=== PATIENT | female | born 1950 | race Caucasian/White ===

== ENCOUNTER → 2016-07-12 | Outpatient (CLI) | payer OTHER | LOC: FIMAGING 09:30 | PROVIDERS: ATTEND Internal Medicine Gastroenterology | DX: R74.0 Nonspecific elevation of levels of transaminase and lactic acid dehydrogenase [LDH] (principal); R74.8 Abnormal levels of other serum enzymes; K76.9 Liver disease, unspecified ==

== ENCOUNTER → 2016-11-24 | Outpatient (CLI) | payer OTHER | LOC: FIMAGING 10:03 → EDSTATUS 10:20 | PROVIDERS: ATTEND Internal Medicine | DX: Z12.31 Encounter for screening mammogram for malignant neoplasm of breast (principal) | CPT/HCPCS: G0202 ==

== ENCOUNTER 2017-06-03 17:14 | Emergency (ER) | payer OTHER ==
[2017-06-03 17:36] VITALS: BP 124/73; PULSE 106; RESP 16; TEMP 98.2; O2SAT 95
[2017-06-03] MEDS ORDERED: PROPARACAINE 0.5% 15 ML OPHT DROP OP ONE (17:39)
[2017-06-03] MEDS ORDERED: FLUORESCEIN SODIUM 1 MG STRIP OP ONE ×2 (17:40→17:49)
[2017-06-03] MEDS ORDERED: PROPARACAINE 0.5% 15 ML OPHT DROP ONE (17:40)
--- NOTE | 2017-06-03 17:40 | EDPHY ---
H & P Stated Complaint: R eye injury Time Seen by Provider: 06/03/17 17:39 HPI/ROS: CHIEF COMPLAINT: Right eye pain HISTORY OF PRESENT ILLNESS: This is a 66-year-old female who was working in the [employer] today. A branch puncture in the right eye. This occurred for 5 hr ago. She has had persistent right eye pain since that time. She has a foreign body sensation. She reports chronic dry eyes and states that she rubs her eyes frequently. She is not aware of any change in vision. She wears glasses on occasion, no contact lens use. She has had Lasix surgery in the remote past. No injury to the left eye or the face. REVIEW OF SYSTEMS: A ten point review of systems was performed and is negative with the exception of the items mentioned in the HPI. Past medical history: 1 TBI 2. Hyperlipidemia 3. Depression 4. 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 She is . She does not use tobacco products. She drinks alcohol socially. General Appearance: Alert. Vital signs reviewed. Blood pressure 124/60 3, heart rate 106. Focused exam was performed. Eyes: Visual Acuity: noted from Nurse's notes. Pupils:equal round and reactive to light EOMI Lids: no edema or swelling, lids everted and no evidence of foreign body seen. Skin: no proptosis, no periorbital erythema or swelling, no vesicles Conjunctivae: Mildly injected OD, watery discharge OD Cornea: exam with fluorescein shows corneal abrasion at 1 o'clock Anterior chamber:normal, no hyphema or hypopyon ENT, Mouth: Mucous membranes are moist, no oropharyngeal erythema or edema. Respiratory: Lungs are clear to auscultation; no wheezes, rales, or rhonchi. Cardiovascular: Regular rate and rhythm; no murmur, rub, or gallop. Neurological: Alert and oriented. Moving all four extremities easily and equally. Psychiatric: Normal affect. - Personal History Current Tetanus/Diphtheria Vaccine: Yes Current Tetanus Diphtheria and Acellular Pertussis (TDAP): Yes Tetanus Vaccine Date: 12/10/2010 - Medical/Surgical History Hx Asthma: No Hx Chronic Respiratory Disease: No Hx Diabetes: No Hx Cardiac Disease: No Hx Renal Disease: No Hx Cirrhosis: No Hx Alcoholism: No Hx HIV/AIDS: No Hx Splenectomy or Spleen Trauma: No Other PMH: past hx L lumbar pain. head injury, hyperlipidemia,GERD, - Social History Smoking Status: Former smoker Constitutional: Initial Vital Signs Temperature (C) 36.8 C 06/03/17 17:34 Heart Rate 106 H 06/03/17 17:34 Respiratory Rate 16 06/03/17 17:34 Blood Pressure 124/73 H 06/03/17 17:34 O2 Sat (%) 95 06/03/17 17:34 O2 Delivery Mode Room Air Allergies/Adverse Reactions: No Known Allergies Allergy (Verified 06/03/17 17:31) Home Medications: Medication Instructions Recorded TEMAZEPAM 15 mg PO HS PRN 03/15/12 Pravastatin Sodium 01/04/16 Gabapentin 06/03/17 Lasix 06/03/17 Ofloxacin 0.3% [Ocuflox 0.3% (RX)] 1 drops RTEYE QID #1 opht.btl 06/03/17 Topamax 06/03/17 Venlafaxine HCl 06/03/17 oxyCODONE/APAP 5/325 [Percocet 1 - 2 tab PO Q4H PRN #15 tab 06/03/17 5/325 (RX)] Medical Decision Making ED Course/Re-evaluation: Eye examination reveals corneal abrasion OB. She is given a prescription for Ocuflox and Percocet. 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 She is also given referral to an loom winder tender. We reviewed the danger signs that should prompt her to be re-evaluated immediately. I do not see a foreign body with lid eversion. No evidence of ruptured globe or scleral injury. Anterior chamber appears normal--no hyphema or hypopyon. I do not suspect acute angle closure glaucoma in this setting of blunt trauma to the eye. Departure - Departure Disposition: Home, Routine, Self-Care Clinical Impression: Corneal abrasion Qualifiers: Encounter type: initial encounter Laterality: right Qualified Code(s): S05.01XA - Injury of conjunctiva and corneal abrasion without foreign body, right eye, initial encounter Condition: Good Instructions: Corneal Abrasion (ED) Additional Instructions: Use the eye drops, Ocuflox, every two hours while awake tonight. After that you can use it every four to six hours. Follow up with your eye doctor or with Dr. Patton on Monday. Call early Monday morning for an appointment. Make sure the office knows that you were seen in the emergency department and diagnosed with a corneal abrasion. Referrals: Josseline Narvaez MD [Primary Care Provider] - As per Instructions Romel Patton MD [Medical Doctor] - As per Instructions Prescriptions: Ofloxacin 0.3% [Ocuflox 0.3% (RX)] 1 drops RTEYE QID #1 opht.btl oxyCODONE/APAP 5/325 [Percocet 5/325 (RX)] 1 - 2 tab PO Q4H PRN #15 tab PRN Reason: Pain, Severe
== END 2017-06-03 18:25 | disposition home or self-care (01) ==
DX: S05.01XA Injury of conjunctiva and corneal abrasion without foreign body, right eye, initial encounter (principal); Z87.891 Personal history of nicotine dependence; X58.XXXA Exposure to other specified factors, initial encounter; Y92.89 Other specified places as the place of occurrence of the external cause; Y99.0 Civilian activity done for income or pay; Y93.89 Activity, other specified

== ENCOUNTER 2018-02-07 19:10 | Emergency (ER) | payer OTHER ==
--- NOTE | 2018-02-07 20:31 | EDPHY ---
H & P Stated Complaint: right knee pain for 2days that radiates to the right leg. Pt fell 5days ago Time Seen by Provider: 02/07/18 20:30 HPI/ROS: HPI: This is a 67-year-old female who presents with Chief Complaint: right knee pain for 2days that radiates to the right leg. Pt fell 5days ago Location: Right leg Quality: Pain Duration: 5 days Signs and Symptoms: No bleeding, + radiation, no numbness, no weakness, no tingling, no incontinence, + decreased range of motion, no swelling, + pain, no fever Timing: Acute, worse Severity: Moderate to severe Context: Patient has a history of left lumbar radiculopathy pain presents with tripping and the yard accidentally. Denies LOC/head injury/neck pain/dizziness/ nausea/vomiting/amnesia. Patient believes that she may have injured her knee. Over the course of the last 2 days she has developed progressive right lower leg decreased range of motion and pain. Denies any change in bowel or bladder habits. She reports that she is unable to ambulate secondary to the pain. Patient also reports that she has some arthritis in her right hip. Modifying Factors: None Comment: ROS: A comprehensive 10 system review of systems is otherwise negative aside from elements mentioned in the history of present illness. MEDICAL/SURGICAL/SOCIAL HISTORY: Medical history: L lumbar pain, head injury, hyperlipidemia,GERD, depression, Surgical history: arnol, bso, partial thyroidectomy Social history: Former smoker. Denies drug use. CONSTITUTIONAL: Moderate distress, elderly white female, awake and alert HEENT: Atraumatic and normocephalic. NECK: supple, no midline tenderness, flexion 45 degrees, extension 45 degrees, right and left lateral flexion 45 degrees. No meningismus. Cardiovascular: Normal S1/S2, regular rate, regular rhythm, without murmur rub or gallop. PULMONARY/CHEST: Symmetrical and nontender. no crepitus. Clear to auscultation bilaterally. Good air movement. No accessory muscle usage. ABDOMEN: Soft, nondistended, nontender, no ecchymosis. BACK: No midline tenderness, moderate reproducible lumbar paraspinous bear lateral tenderness; decreased flexion, extension and rotation secondary to pain ; no paraspinous spasm, deep tendon reflexes 2/2, mild pain with straight leg raise, No foot drop. Achilles reflexes are equal bilaterally. EXTREMITIES: 2/2 pulses, strength 5/5, right HIP: Flexion to 90 , extension to 100 , hyper extension to 15, abduction to 45. Moderate Pain with internal rotation and external rotation. Mild tenderness over greater trochanter. Right KNEE: no effusion, no medial and lateral joint line tenderness, full extension to 180, flexion to 90 . Mild pain with varus and valgus exam. Mild pain with anterior drawer or posterior drawer test. Extensor mechanism intact. DIP/PIP/MCP flexion/extension intact with good light touch sensation. no deformities, no clubbing, no cyanosis or edema. NEUROLOGICAL: no focal neuro deficits. GCS 15. Light touch sensation intact. SKIN: Warm and dry, no erythema. no rash. Good capillary refill. Source: Patient Exam Limitations: No limitations - Personal History Current Tetanus/Diphtheria Vaccine: Yes Current Tetanus Diphtheria and Acellular Pertussis (TDAP): Yes Tetanus Vaccine Date: 12/10/2010 - Medical/Surgical History Hx Asthma: No Hx Chronic Respiratory Disease: No Hx Diabetes: No Hx Cardiac Disease: No Hx Renal Disease: No Hx Cirrhosis: No Hx Alcoholism: No Hx HIV/AIDS: No Hx Splenectomy or Spleen Trauma: No Other PMH: past hx L lumbar pain. head injury, hyperlipidemia,GERD, depression , arnol, bso, partial thyroidectomy - Social History Smoking Status: Former smoker Constitutional: Initial Vital Signs Temperature (C) 36.7 C 02/07/18 19:14 Heart Rate 97 02/07/18 19:14 Respiratory Rate 16 02/07/18 19:14 Blood Pressure 133/73 H 02/07/18 19:14 O2 Sat (%) 96 02/07/18 19:14 O2 Delivery Mode Room Air Allergies/Adverse Reactions: No Known Allergies Allergy (Verified 02/07/18 19:17) Home Medications: Medication Instructions Recorded Topamax 06/03/17 Venlafaxine HCl 06/03/17 Aspirin 81mg (*) 02/07/18 Cyclobenzaprine [Flexeril 10 MG 10 mg PO TID PRN #15 tab 02/07/18 (*)] Ritalin 10mg (*) 02/07/18 oxyCODONE/APAP 5/325 [Percocet 1 - 2 tab PO Q4H PRN #10 tab 02/07/18 5/325 (*)] Medical Decision Making - Diagnostics Imaging Results: Imaging Impressions Hip X-Ray 02/07/18 20:37 Impression: 1. Mild to moderate osteoarthritis right hip. 2. No definite right hip fracture or dislocation. 3. Consider additional CT or MRI imaging, if clinically indicated. Knee X-Ray 02/07/18 20:37 Impression: 1. Moderate tricompartmental osteoarthritis, worse in the patellofemoral joint. 2. No definite fracture. 3. Consider follow-up MRI imaging, if clinically indicated. Lumbar Spine X-Ray 02/07/18 20:37 Impression: 1. Dextroscoliosis. 2. Multilevel moderate degenerative disk disease. 3. No compression fractures. 4. Consider additional MRI imaging, if clinically indicated. Procedures: Procedure: Splint placement. A right knee immobilizer was applied by the Emergency Room instrument room technician. After application of the splint I returned and re-examined the patient. The splint was adequately immobilizing the joint and distal to the splint the patient's circulation and sensation was intact. ED Course/Re-evaluation: Lumbosacral x-rays, right hip x-rays, right knee x-rays ordered Patient given p.o. Valium 5 mg, p.o. Decadron 10 mg, p.o. Gabapentin 600 mg, p.o. Tylenol 1000 mg, p.o. Ibuprofen 600 mg Lumbosacral x-rays my read show mild degenerative disc disease with disc space narrowing Right hip x-ray shows mild degenerative disc disease Right knee x-ray my read shows no fracture, dislocation, soft tissue swelling 2230: Reassessed patient. Right knee immobilizer and crutches provided. Suspect patellar quadriceps tendonitis, knee sprain and lumbar degenerative disc disease with radiculopathy. Neurosurgery and Orthopedic referral given. No signs of neurovascular compromise/tenting of skin/compartment syndrome/ extremities and joints examined above and below area of concern and are neurovascularly intact. This patient was seen under the supervision of my secondary supervising physician. I evaluated care for this patient independently. Discussed this patient with Dr. Alcaraz. Differential Diagnosis: Knee injury while [] including but not limited to fracture, ACL injury, contusion, muscular strain, and meniscus injury. - Data Points Medications Given: Discontinued Medications Acetaminophen (Tylenol) 1,000 mg PO EDNOW ONE Stop: 02/07/18 20:36 Last Admin: 02/07/18 20:43 Dose: 1,000 mg Dexamethasone (Decadron) 10 mg PO EDNOW ONE Stop: 02/07/18 20:37 Last Admin: 02/07/18 20:42 Dose: 10 mg Diazepam (Valium) 5 mg PO EDNOW ONE Stop: 02/07/18 20:36 Last Admin: 02/07/18 20:43 Dose: 5 mg Gabapentin (Neurontin) 600 mg PO EDNOW ONE Stop: 02/07/18 20:36 Last Admin: 02/07/18 20:42 Dose: 600 mg Ibuprofen (Motrin) 600 mg PO EDNOW ONE Stop: 02/07/18 20:36 Last Admin: 02/07/18 20:42 Dose: 600 mg Departure - Departure Disposition: Home, Routine, Self-Care Clinical Impression: Lumbar disc disease with radiculopathy, Patellofemoral arthritis of right knee Right knee sprain Qualifiers: Encounter type: initial encounter Involved ligament of knee: medial collateral ligament Qualified Code(s): S83.411A - Sprain of medial collateral ligament of right knee, initial encounter Osteoarthritis of right hip Qualifiers: Osteoarthritis type: primary Qualified Code(s): M16.11 - Unilateral primary osteoarthritis, right hip Condition: Good Instructions: Knee Immobilizer (ED), Crutch Instructions (ED), Osteoarthritis ( ED), Degenerative Disc Disease (ED) Additional Instructions: Wear the knee immobilizer while out of bed until pain free or seen by Orthopedics. Use crutches to aid ambulation. Take Tylenol 650 mg every 4 hours and/or Ibuprofen 600 mg every 8 hours with food as needed for pain. Use Percocet every 6 hours as needed for severe/break through pain. Do not use Tylenol and Percocet concomitantly. Use Flexeril every 8 hr as needed for muscle spasm. Follow up with Orthopedics/Neurosurgery in 5-7 days at which time they will evaluate and recommend with you if conservative management versus MRI is indicated. Referrals: Josseline Narvaez MD [Primary Care Provider] - As per Instructions Trev Rushing MD [Medical Doctor] - As per Instructions Tay De Dios MD [Medical Doctor] - As per Instructions Prescriptions: Cyclobenzaprine [Flexeril 10 MG (*)] 10 mg PO TID PRN #15 tab PRN Reason: Spasms oxyCODONE/APAP 5/325 [Percocet 5/325 (*)] 1 - 2 tab PO Q4H PRN #10 tab PRN Reason: Pain, Severe
[2018-02-07] MEDS ORDERED: GABAPENTIN 300 MG CAP PO ONE (20:35)
[2018-02-07] MEDS ORDERED: IBUPROFEN 600 MG TAB PO ONE (20:35)
[2018-02-07] MEDS ORDERED: ACETAMINOPHEN 500 MG TAB PO ONE (20:35)
[2018-02-07] MEDS ORDERED: DIAZEPAM 5 MG TAB PO ONE (20:35)
[2018-02-07] MEDS ORDERED: DEXAMETHASONE 4 MG TAB PO ONE (20:36)
[2018-02-07 22:32] VITALS: BP 101/77
[2018-02-07] MEDS ORDERED: OXYCODONE/APAP 5/325MG PREPACK#4 BTL TAKEHOME ONE (23:07)
[2018-02-07] MEDS ORDERED: CYCLOBENZAPRINE 10MG PREPACK#3 BTL TAKEHOME ONE (23:07)
== END 2018-02-07 23:24 | disposition home or self-care (01) ==
DX: M25.561 Pain in right knee (principal); S83.411A Sprain of medial collateral ligament of right knee, initial encounter; M16.11 Unilateral primary osteoarthritis, right hip; M54.16 Radiculopathy, lumbar region; W18.40XA Slipping, tripping and stumbling without falling, unspecified, initial encounter; Y92.007 Garden or yard of unspecified non-institutional (private) residence as the place of occurrence of the external cause
CPT/HCPCS: 72100; 73502; 73564; 99284; L1830

== ENCOUNTER → 2018-03-02 | Outpatient (CLI) | payer OTHER | LOC: FIMAGING 11:16 | PROVIDERS: ATTEND Orthopaedic Surgery Orthopaedic Surgery of the Spine | DX: M71.21 Synovial cyst of popliteal space [Baker], right knee (principal) ==

== ENCOUNTER → 2018-05-04 | Outpatient (CLI) | payer OTHER | LOC: FIMAGING 08:12 | PROVIDERS: ATTEND Internal Medicine | DX: Z12.31 Encounter for screening mammogram for malignant neoplasm of breast (principal); Z13.820 Encounter for screening for osteoporosis; M85.88 Other specified disorders of bone density and structure, other site; Z78.0 Asymptomatic menopausal state ==

== ENCOUNTER 2018-07-16 16:41 | Emergency (ER) | payer OTHER ==
--- NOTE | 2018-07-16 17:02 | EDPHY ---
H & P Stated Complaint: severe migraine, 2 weeks, coughing, sinus pressure Time Seen by Provider: 07/16/18 17:02 HPI/ROS: HPI CHIEF COMPLAINT: Migraine headache, sinus disease HISTORY OF PRESENT ILLNESS: Patient is a 67-year-old female, she has a history of traumatic brain injury, she presents emergency room with a sinus headache. She reports for the past 2-3 weeks she has been sick with sinus congestion and believe she may have a sinus infection. However over the last week she developed right-sided frontal forehead pain and sinus pain. She believes she may be having a sinus/migraine. She denies any neck pain, fever, vomiting, denies any visual disturbance. Denies any eye pain. The pain is located right forehead and right posterior occiput. She has had this before. Past Medical History: Traumatic brain injury, depression, weight gain, possible obstructive sleep apnea, sinus disease Past Surgical History: Denies recent surgical history Social History: Denies drugs alcohol tobacco. Family History: Noncontributory ROS REVIEW OF SYSTEMS: 10 Systems were reviewed and negative with the exception of the elements mentioned in the history of present illness. Exam Constitutional triage nursing summary reviewed, vital signs reviewed, awake/ alert. Eyes normal conjunctivae and sclera, EOMI, PERRLA. HENT mild tender palpation over the maxillary and frontal right-sided sinus, normal inspection, atraumatic, moist mucus membranes, no epistaxis, neck supple / no meningismus, no raccoon eyes. Respiratory clear to auscultation bilaterally, normal breath sounds, no respiratory distress, no wheezing. Cardiovascular rate normal, regular rhythm, no murmur, no edema, distal pulses normal. Gastrointestinal soft, non-tender, no rebound, no guarding, normal bowel sounds, no distension, no pulsatile mass. Genitourinary no CVA tenderness. Musculoskeletal no midline vertebral tenderness, full range of motion, no calf swelling, no tenderness of extremities, no meningismus, good pulses, neurovascularly intact. Skin pink, warm, & dry, no rash, skin atraumatic. Neurologic awake, alert and oriented x 3, AAOx3, moves all 4 extremities equally, motor intact, sensory intact, CN II-XII intact, normal cerebellar, normal vision, normal speech. Psychiatric normal mood/affect. Heme/Lymph/Immune no lymphadenopathy. Differential Diagnosis: Includes but is not limited to in a particular order sinus headache, migraine headache, tension headache, cluster headache, sinusitis , viral syndrome, URI Medical Decision Making: Plan for this patient IV establishment IV fluid bolus , migraine cocktail, patient cannot get any NSAIDs at this time due to having a potential spinal injection next week. Plan for CT scan head without contrast Re-evaluation: CT scan head without contrast negative for acute bleed or tumor. This does show sinus disease. Re-evaluation at this time 7:11 p.m. Resting comfortably in no acute distress. Patient neurological exam is unremarkable will treat for acute sinusitis with Augmentin, recommend ENT follow-up. We discussed return precautions return emergency room if there is worsening symptoms this includes high fever, vomiting , not doing well. Patient is asking for pain medication I will give her limits play Lutts. Augmentin for sinusitis. Return to the emergency room if worsening headache, fever, vomiting, not doing well. Source: Patient - Personal History Current Tetanus/Diphtheria Vaccine: Yes Current Tetanus Diphtheria and Acellular Pertussis (TDAP): Yes Tetanus Vaccine Date: 12/10/2010 - Medical/Surgical History Hx Asthma: No Hx Chronic Respiratory Disease: No Hx Diabetes: No Hx Cardiac Disease: No Hx Renal Disease: No Hx Cirrhosis: No Hx Alcoholism: No Hx HIV/AIDS: No Hx Splenectomy or Spleen Trauma: No Other PMH: past hx L lumbar pain. head injury, hyperlipidemia,GERD, depression , arnol, bso, partial thyroidectomy - Social History Smoking Status: Former smoker Constitutional: Initial Vital Signs Temperature (C) 36.9 C 07/16/18 16:44 Heart Rate 111 H 07/16/18 16:44 Respiratory Rate 18 07/16/18 16:44 Blood Pressure 141/85 H 07/16/18 16:44 O2 Sat (%) 96 07/16/18 16:44 O2 Delivery Mode Room Air O2 (L/minute) 2 Allergies/Adverse Reactions: No Known Allergies Allergy (Verified 02/07/18 19:17) Home Medications: Medication Instructions Recorded Topamax 06/03/17 Venlafaxine HCl 06/03/17 Aspirin 81mg (*) 02/07/18 Cyclobenzaprine [Flexeril 10 MG 10 mg PO TID PRN #15 tab 02/07/18 (*)] Ritalin 10mg (*) 02/07/18 oxyCODONE/APAP 5/325 [Percocet 1 - 2 tab PO Q4H PRN #10 tab 02/07/18 5/325 (*)] Amoxicillin/Clavulanate Pot 875 mg PO BID #14 tab 07/16/18 [Augmentin 875 MG TAB (*)] Medical Decision Making - Diagnostics Imaging Results: Imaging Impressions Head CT 07/16/18 17:16 Impression: 1. Normal brain 2. Obstructed right frontal sinus. Results called to Dr. Victor at 5:42 PM. General information for patients regarding this examination can be found at [email or web address]. If you have questions or comments about this report, please contact me at [phone] (hospital) or [phone] (cell). - Data Points Laboratory Results: Laboratory Results 07/16/18 17:25 07/16/18 17:25 07/16/18 07/16/18 17:25 17:25 WBC 12.54 10^3/uL H 10^3/uL (3.80-9.50) RBC 4.78 10^6/uL 10^6/uL (4.18-5.33) Hgb 14.6 g/dL g/dL (12.6-16.3) Hct 44.3 % % (38.0-47.0) MCV 92.7 fL fL (81.5-99.8) MCH 30.5 pg pg (27.9-34.1) MCHC 33.0 g/dL g/dL (32.4-36.7) RDW 12.0 % % (11.5-15.2) Plt Count 342 10^3/uL 10^3/uL (150-400) MPV 9.9 fL fL (8.7-11.7) Neut % (Auto) 70.6 % % (39.3-74.2) Lymph % (Auto) 17.9 % % (15.0-45.0) [place] % (Auto) 7.4 % % (4.5-13.0) Eos % (Auto) 2.1 % % (0.6-7.6) Baso % (Auto) 0.7 % % (0.3-1.7) Nucleat RBC Rel Count 0.0 % % (0.0-0.2) Absolute Neuts (auto) 8.86 10^3/uL H 10^3/uL (1.70-6.50) Absolute Lymphs (auto) 2.24 10^3/uL 10^3/uL (1.00-3.00) Absolute Monos (auto) 0.93 10^3/uL H 10^3/uL (0.30-0.80) Absolute Eos (auto) 0.26 10^3/uL 10^3/uL (0.03-0.40) Absolute Basos (auto) 0.09 10^3/uL 10^3/uL (0.02-0.10) Absolute Nucleated RBC 0.00 10^3/uL 10^3/uL (0-0.01) Immature Gran % 1.3 % H % (0.0-1.1) Immature Gran # 0.16 10^3/uL H 10^3/uL (0.00-0.10) Sodium 136 mEq/L mEq/L (135-145) Potassium 4.0 mEq/L mEq/L (3.5-5.2) Chloride 103 mEq/L mEq/L (97-110) Carbon Dioxide 22 mEq/l mEq/l (22-31) Anion Gap 11 mEq/L mEq/L (6-14) BUN 16 mg/dL mg/dL (7-23) Creatinine 0.6 mg/dL mg/dL (0.6-1.0) Estimated GFR > 60 Glucose 95 mg/dL mg/dL (70-100) Calcium 9.6 mg/dL mg/dL (8.5-10.4) Medications Given: Discontinued Medications Hydrocodone Bitart/Acetaminophen (Lutts 5/325mg Prepack#6) 1 btl TAKEHOME EDNOW ONE Stop: 07/16/18 19:14 Last Admin: 07/16/18 19:23 Dose: 1 btl Amoxicillin/Clavulanate Potassium (Augmentin 875mg) 875 mg PO EDNOW ONE PRN Reason: Protocol Stop: 07/16/18 19:15 Last Admin: 07/16/18 19:23 Dose: 875 mg Dexamethasone (Decadron Injection) 10 mg IVP EDNOW ONE Stop: 07/16/18 17:17 Last Admin: 07/16/18 17:40 Dose: 10 mg Diphenhydramine HCl (Benadryl Injection) 50 mg IVP EDNOW ONE Stop: 07/16/18 17:17 Last Admin: 07/16/18 17:35 Dose: 50 mg Hydromorphone HCl (Dilaudid) 0.5 mg IVP EDNOW ONE Stop: 07/16/18 17:17 Last Admin: 07/16/18 17:36 Dose: 0.5 mg Sodium Chloride (Ns) 1,000 mls @ 0 mls/hr IV ONCE ONE; Wide Open PRN Reason: Protocol Stop: 07/16/18 17:17 Last Admin: 07/16/18 17:34 Dose: 1,000 mls Departure - Departure Disposition: Home, Routine, Self-Care Clinical Impression: Sinusitis, Headache Condition: Good Instructions: Hydrocodone/Acetaminophen (By mouth), Sinusitis (ED), Acute Headache (ED) Additional Instructions: 1. Stay well-hydrated drink lots of fluids and rest. 2. Antibiotics as prescribed 3. Return to the emergency room if worsening symptoms includes worsening pain, vomiting, fever Referrals: Josseline Narvaez MD [Primary Care Provider] - As per Instructions Cristi Horton MD [Medical Doctor] - As per Instructions Prescriptions: Amoxicillin/Clavulanate Pot [Augmentin 875 MG TAB (*)] 875 mg PO BID #14 tab
[2018-07-16] MEDS ORDERED: HYDROmorphONE/DILAUDID 2 MG/ML INJ IVP ONE (17:16)
[2018-07-16] MEDS ORDERED: DEXAMETHASONE 10 MG/ML VIAL IVP ONE (17:16)
[2018-07-16] MEDS ORDERED: NS 1,000 ML IV ONE (17:16)
[2018-07-16 18:14] LABS: PLATELET COUNT 342 10^3/uL (150-400)
[2018-07-16] MEDS ORDERED: HYDROCOD/APAP 5/325 PREPACK#6 BTL TAKEHOME ONE (19:13)
[2018-07-16] MEDS ORDERED: AMOXICILLIN/CLAVULANATE POT 875/125 MG TAB PO ONE (19:14)
[2018-07-16 19:15] VITALS: BP 127/78
== END 2018-07-16 19:29 | disposition home or self-care (01) ==
DX: J01.90 Acute sinusitis, unspecified (principal); R51 Headache; E78.5 Hyperlipidemia, unspecified; Z87.820 Personal history of traumatic brain injury; E86.9 Volume depletion, unspecified
CPT/HCPCS: 70450; 96361; 96374; 96375; 99285; J1100; J1170; J1200